=== PATIENT | male | born 1960 | race Two or more races ===

== ENCOUNTER 2019-10-08 22:48 | Emergency (ER) | payer BC ==
[~2019-10-08] VITALS: Ht 170.2 cm; Wt 77.1 kg
[2019-10-08] MEDS ORDERED: HYDR25SU18 RC (23:20)
[2019-10-08 23:29] VITALS: BP 138/66
--- NOTE | 2019-10-08 23:32 | PHYS DOC ---
Past Medical History Past Medical History: No Pertinent History Past Surgical History: No Surgical History Alcohol Use: None Drug Use: None Adult General Chief Complaint Chief Complaint: OTHER COMPLAINTS [facility] HPI Patient is a 59 year old [f__sex] who presents with [] She has a 59-year-old male who presents with rectal pain times one day. Prior episodes of rectal pain. No pain, fevers chills, sweats. No urinary frequency urgency or dysuria. Patient took Tylenol with codeine prior to ED arrival without improvement. Last bowel movement was 24 hours ago. Review of Systems Review of Systems ROS as per HPI All other systems were reviewed and found to be within normal limits, except as documented in this note. Current Medications Current Medications Current Medications Medications (Trade) Dose Ordered Sig/Lesly Start Time Stop Time Status Last Admin Dose Admin Oxycodone/ Acetaminophen (Percocet 10/325) 1 tab 1X ONCE 10/08/19 23:45 10/08/19 23:46 Allergies Allergies Allergies Coded Allergies Type Severity Reaction Last Updated Verified No Known Drug Allergies 10/08/19 No Physical Exam Physical Exam Constitutional: Well developed, well nourished, no acute distress, non-toxic appearance. [] HENT: Normocephalic, atraumatic, bilateral external ears normal, oropharynx moist, nose normal. [] Eyes: PERRLA, EOMI, conjunctiva normal, no discharge. [] Neck: Normal range of motion. [] Cardiovascular:Heart rate regular rhythm, no murmur [] Lungs & Thorax: Bilateral breath sounds clear to auscultation [] Abdomen: Soft, nondistended, increased bowel sounds. [] Rectal: Large painful, nonthrombosed external hemorrhoid, no fissures, tags or bleeding. Rectal exam deferred due to patient comfort] Back: No tenderness, no CVA tenderness. [] Neurologic: Alert and oriented normal motor function, normal sensory function, no focal deficits noted. [] Psychologic: Affect normal, judgement normal, mood normal. [] Current Patient Data Vital Signs Vital Signs Date Time Temp Pulse Resp B/P (MAP) Pulse Ox O2 Delivery O2 Flow Rate FiO2 10/08/19 22:50 97.6 66 19 125/78 (94) 100 Room Air 97.6 EKG EKG [] Radiology/Procedures Radiology/Procedures [] Course & Med Decision Making Course & Med Decision Making Pertinent Labs and Imaging studies reviewed. (See chart for details) [non-thrombosed external hemorrhoid. Recommend supportive care] Catrachita Disclaimer Catrachita Disclaimer This electronic medical record was generated, in whole or in part, using a voice recognition dictation system. Departure Departure Impression: Primary Impression: Rectal pain Additional Impression: External hemorrhoid Disposition: HOME/RESIDENCE PRIOR TO ADM Condition: GOOD Patient Instructions: Hemorrhoids, [id number] Additional Instructions: Take daily stool softner and use preperation H and rectal suppository as directed. Continue Tylenol with codeine as needed for pain. Follow up with your PCP for general surgical referral. Scripts Hydrocortisone Acetate (ANUSOL-HC) 25 Mg Supp.rect 1 SUPP RC BID for 7 Days, #14 SUPP 0 Refills Prov: JOY VARGAS DO 10/08/19 Problem Qualifiers JOY VARGAS DO Oct 08, 2019 23:32
[2019-10-08] MEDS ORDERED: oxyCODONE/APAP 10/325 1 TAB TABLET PO ONE (23:45)
== END 2019-10-08 23:30 | disposition home or self-care (01) ==
LOC: ER 22:48
DX: K64.4 Residual hemorrhoidal skin tags (principal)
CPT/HCPCS: 99283